=== PATIENT | female | born 1965 | race American Indian/Alaskan Native ===

== ENCOUNTER 2018-02-08 07:43 | Day surgery (SDC) | payer OTHER ==
[~2018-02-08] VITALS: Ht 162.6 cm; Wt 102.1 kg
[~2018-02-08 07:43] MED LIST: CLARITIN10 M2 PO; TRIAMTERENE-HC1 EAC3 PO; VITAMIN D5000 UNI1 PO
--- NOTE | 2018-02-08 09:34 | NUR ---
02/08/18 0933 She Stevens 0968 PT ARRIVED TO PACU WITH EYES OPEN AND TALKING. PT DROWSY, RESP EVEN AND UNLABORED. PT DENIES PAIN AND NAUSEA. 0933 PT BACK TO SLEEP.
--- NOTE | 2018-02-08 11:13 | OR ---
[facility] [address], [place] [address] Signed DATE OF OPERATION: 02/08/2018 SURGEON: Ashley Henry MD PREOPERATIVE DIAGNOSIS: Screening. POSTOPERATIVE DIAGNOSIS: Minimal sigmoid diverticulosis. PROCEDURE: Colonoscopy without biopsy. ESTIMATED BLOOD LOSS: None. INDICATIONS: The patient is a 53-year-old female asked to see me for her initial screening colonoscopy. She has no lower GI complaints. There is no family history of colon cancer or polyps. In the office, I gave the patient a pamphlet on colonoscopy. We looked at that in detail. She understands the nature of colonoscopy along with its risks including, but not limited to gas bloating, crampy abdominal pain, bleeding, perforation, requiring surgery, and missed diagnosis. She also understands the need for IV conscious sedation. She expressed understanding and wished to proceed. PROCEDURE NOTE: Maddy was taken into our endoscopy suite and placed in the left lateral decubitus position. She was given divided doses of 9 mg of Versed and 175 mcg of fentanyl. A digital rectal exam was performed and this was unremarkable. The adult colonoscope was introduced and advanced all the around into the cecum under direct visualization without difficulty. Her prep was quite good. The scope was then slowly withdrawn. She had a few diverticula in the sigmoid colon. There was small to moderate size, few in number, and scattered about. The rectum itself was unremarkable. Upon retroflexion of the scope, there was no additional pathology noted above the anal canal. After this, the gas was suctioned out and the colonoscope removed. The patient tolerated the procedure quite well. She specifically asked me not to review the colonoscopy with her . RECOMMENDATIONS: The patient can follow up in 10 years for repeat colonoscopy. Electronically Signed By: ASHLEY HENRY MD 02/08/18 1113 PATIENT NAME: SCOT OSHEA OPERATIVE REPORT DATE OF : 69 REPORT #: [id number] PHYSICIAN: ASHLEY HENRY MD PCP: CHRISTINA DECKER REPORT IS CONFIDENTIAL AND NOT TO BE RELEASED WITHOUT AUTHORIZATION [address] [address] Signed MD RK De Dios/MARK ANTHONY /[id number] cc: Dr. Liliana Henry MD Copies: ASHLEY HENRY MD ~ Electronically Signed By: ASHLEY HENRY MD 02/08/18 1113 PATIENT NAME: SCOT OSHEA OPERATIVE REPORT DATE OF : 69 REPORT #: [id number] PHYSICIAN: ASHLEY HERNY MD PCP: CHRISTINA DECKER REPORT IS CONFIDENTIAL AND NOT TO BE RELEASED WITHOUT AUTHORIZATION
== END 2018-02-08 10:03 | disposition home or self-care (01) ==
LOC: OPS 07:43 → DS 07:43 → OPS 09:00 → DS 09:00 → OPS 10:03
PROVIDERS: Colon & Rectal Surgery
PROC: 0DJD8ZZ Inspection of Lower Intestinal Tract, Via Natural or Artificial Opening Endoscopic (ICD-10-PCS; principal; 2018-02-08 09:00)
DX: Z12.11 Encounter for screening for malignant neoplasm of colon (principal); K57.30 Diverticulosis of large intestine without perforation or abscess without bleeding; I10 Essential (primary) hypertension; E78.5 Hyperlipidemia, unspecified; E55.9 Vitamin D deficiency, unspecified; E66.9 Obesity, unspecified; Z68.38 Body mass index [BMI] 38.0-38.9, adult; Z79.899 Other long term (current) drug therapy
CPT/HCPCS: 99153; G0500; J2250; J3010; J7120